=== PATIENT | male | born 1935 | race Caucasian/White ===

== ENCOUNTER 2023-02-07 09:03 | Outpatient (CLI) | payer MEDICARE ==
[2023-02-07] MEDS ORDERED: Iopamidol 300 61% 100 ML VIAL FS ONE (10:27)
== END 2023-02-07 09:04 | disposition home or self-care (01) ==
LOC: CSHCT 09:03
PROVIDERS: ATTEND Physician Assistant
DX: R22.1 Localized swelling, mass and lump, neck (principal)
CPT/HCPCS: 70491; 82565; Q9967

== ENCOUNTER 2024-06-04 10:57 | Outpatient (CLI) | payer MEDICARE ==
[2024-06-04 15:20] LABS: Hematocrit 31.6 % (38.8-50.0); Hemoglobin 9.9 g/dL (13.5-17.5); Mean Corpuscular HGB CONC 31.3 g/dL (32.0-36.0); Mean Corpuscular Hemoglobin 24.3 pg (27.0-33.0); Mean Corpuscular Volume 77.5 fL (81.2-95.1); Mean Platelet Volume 10.1 fL (7.4-10.4); Platelet Count 325 10x3/uL (150-450); RBC Distribution Width 17.2 % (11.5-14.5); Red Blood Cell (RBC) Count 4.08 10x6/uL (4.32-5.72); White Blood Cell (WBC) Count 6.2 10x3/uL (3.5-10.5)
[2024-06-04 15:25] LABS: Anion Gap 16 mmol/L (10-20); BUN (Urea Nitrogen) 28 mg/dL (8.4-25.7); Calc. Creatinine Clearance 0 mL/min (70-130); Calcium 9.7 mg/dL (7.8-10.44); Carbon Dioxide 24 mmol/L (23-31); Chloride 104 mmol/L (98-107); Estimated GFR 55; Glucose 93 mg/dL (83-110); Potassium 4.5 mmol/L (3.5-5.1); Sodium 139 mmol/L (136-145)
== END 2024-06-04 10:58 | disposition home or self-care (01) ==
LOC: CSHLAB 10:57
PROVIDERS: ATTEND Otolaryngology Otolaryngic Allergy
DX: Z01.818 Encounter for other preprocedural examination (principal); K11.8 Other diseases of salivary glands; R22.1 Localized swelling, mass and lump, neck; C44.319 Basal cell carcinoma of skin of other parts of face
CPT/HCPCS: 80048; 85027; 93005; 93010